=== PATIENT | male | born 1950 | race Caucasian/White ===

== ENCOUNTER 2018-03-02 10:31 | Outpatient (CLI) | payer BC | END 2018-03-02 10:32 | disposition home or self-care (01) | LOC: BICRAD 10:31 | PROVIDERS: ATTEND Urology | DX: N20.0 Calculus of kidney (principal) | CPT/HCPCS: 74018; 81001 ==

== ENCOUNTER 2018-03-08 11:28 | Outpatient (CLI) | payer BC ==
[2018-03-08 13:13] LABS: Hemoglobin 15.5 g/dL (14.0-18.0); Mean Corpuscular HGB CONC 34.3 g/dL (32.0-36.0); Mean Corpuscular Hemoglobin 31.5 pg (27.0-31.0); Mean Corpuscular Volume 91.8 fL (78.0-98.0); Mean Platelet Volume 6.6 fL (7.4-10.4); Platelet Count 337 thou/uL (130-400); RBC Distribution Width 13.6 % (11.5-14.5); Red Blood Cell (RBC) Count 4.93 mill/uL (4.70-6.10)
[2018-03-08 13:16] LABS: Bilirubin Negative (Negative); Blood, Urine Large (Negative); Clarity CLOUDY (Clear); Glucose, Urine (Dipstick) Negative (Negative); Leukocyte Moderate (Negative); Nitrite Negative (Negative); Protein, Urine (Dipstick) 100 mg/dL (Neg-Trace); Specific Gravity, Urine 1.023 (1.002-1.036); Urobilinogen 0.2 mg/dL (0.2-1.0)
[2018-03-08 13:18] LABS: Bacteria/HPF None Seen HPF (None Seen); Hyaline Casts/LPF 4-6 HYALINE CAST LPF (0-3 Hyaline); Pathc Cast-AUWi Flag 0.72 (0-2.49); RBC/HPF GREATER THAN 50-TNTC HPF (0-3); Squamous Epithelial 0-3 HPF (0-3)
[2018-03-08 13:24] LABS: INR-International Normal Ratio 0.9; Prothrombin Time 12.5 SEC (12.0-14.7)
[2018-03-08 13:27] LABS: PTT 22.8 SEC (22.9-36.1)
[2018-03-08 13:42] LABS: Anion Gap 11 mmol/L (10-20); BUN (Urea Nitrogen) 9 mg/dL (8.4-25.7); Calc. Creatinine Clearance 0 mL/min (70-130); Calcium 9.4 mg/dL (7.8-10.44); Carbon Dioxide 23 mmol/L (23-31); Chloride 108 mmol/L (98-107); Estimated GFR-MDRD 87; Glucose 96 mg/dL (80-115); Potassium 4.3 mmol/L (3.5-5.1); Sodium 138 mmol/L (136-145)
--- NOTE | 2018-03-11 15:01 | EKG ---
Test Reason : Blood Pressure : / mmHG Vent. Rate : 063 BPM Atrial Rate : 063 BPM P-R Int : 168 ms QRS Dur : 072 ms QT Int : 398 ms P-R-T Axes : 009 087 065 degrees QTc Int : 407 ms Normal sinus rhythm Normal ECG When compared with ECG of 22-JAN-2016 12:14, Nonspecific T wave abnormality no longer evident in Inferior leads QT has shortened Confirmed by DEBBIE BURGESS, JONATHON ([id number]) on 03/11/2018 3:00:39 PM Referred By: LINDA Confirmed By:JONATHON LEWIS MD
== END 2018-03-08 11:29 | disposition home or self-care (01) ==
LOC: LABBT 11:28
PROVIDERS: ATTEND Urology
DX: Z01.818 Encounter for other preprocedural examination (principal); N20.1 Calculus of ureter
CPT/HCPCS: 80048; 81001; 85027; 85610; 85730; 87086; 93005; 93010

== ENCOUNTER 2018-03-17 09:29 | Day surgery (SDC) | payer BC ==
[2018-03-08 11:51] VITALS: BMI 25.1
[2018-03-17] MEDS ORDERED: Levofloxacin 500 mg/D5W 100 ml Premix Bag ONE (11:09)
[2018-03-17] MEDS ORDERED: Fentanyl 100 MCG/2 ML VIAL ONE (14:53)
[2018-03-17] MEDS ORDERED: Iothalamate Meglumine 60% 50 ML VIAL FS ONE (15:32)
[2018-03-17] MEDS ORDERED: HYDROcodone/Acetaminophen 5/325 mg Tablet ONE (18:21)
--- NOTE | 2018-03-17 19:48 | OP ---
DATE OF PROCEDURE: 03/17/2018 SERVICE: Urology. SURGEON: Sanchez Donovan M.D. PREOPERATIVE DIAGNOSIS: Left renal stone. POSTOPERATIVE DIAGNOSIS: Left renal stone. PROCEDURE PERFORMED: Left ureteroscopy, laser lithotripsy and placement of a 6 x 28 double-J stent. INDICATIONS FOR PROCEDURE: Mr. Pizarro is a 67-year-old white male who presented to me with left flan k pain and intermittent hematuria. A CT demonstrated a large 1.6 cm left UPJ stone. I discussed shashank atment of the stone via ureteroscopy with risks and benefits and he has agreed to proceed forward. DESCRIPTION OF PROCEDURE: After identification of arm band and verification of consent, the patient was brought back to the operating room. He underwent general anesthesia with endotracheal intubation . He was then placed in dorsal lithotomy position, prepped and draped in the usual sterile fashion. After appropriate timeout, a lubricated 22-Prydeinig rigid cystoscope was introduced per urethra into t he bladder and attention turned to the left ureteral orifice. The ureteral orifice was cannulated wi th a 0.035 sensor wire up to the level of the renal pelvis. The cystoscope was then removed and a du al-lumen catheter advanced over the sensor wire up to the level of the proximal ureter. An Amplatz S uper Stiff wire was then placed through the dual lumen into the renal pelvis. The dual-lumen was the n removed. A sensor wire was affixed to the drape as a safety wire. An 11/13 x 46 cm ureteral acces s sheath was advanced over the Super Stiff wire up to the level of the UPJ. The inner cannula and th e Super Stiff wire were then removed leaving the outer sheath and the sensor wire in place as a safet y wire. A flexible digital ureteroscope was then used to cannulate through the ureteral access sheat h up to the level of the ureteropelvic junction. The stone was immediately apparent there, covered i n some blood clot with a lot of inflammation. Using a 200 micron laser fiber, the stone was fragment ed into small pieces. The stone was extremely soft stone, probably either calcium phosphate, calcium oxalate dihydrate or uric acid, although uric acid is the least favored given the radiodensity on pl ain x-ray. Given the softness of the stone, the stone was popcorned into extremely small pieces. Th e pieces were all in the 1-2 mm range. There became a significant amount of debris up in the kidney and it was not possible to identify larger stone pieces. We spent a lot of time lasering little bits into small pieces as possible as basketing would be extremely difficult given the sheer amount of st one burden and the difficulty identifying any larger stones. Upon completion, there was a large amou nt of stone material in the kidney, all in the very small dust granular sized range. Given the calib er of the ureter, I did feel that majority of the stone should pass, especially if his ureter is dila meg some with a stent, which we will keep in for approximately 1 week. Therefore, a pullback uretero scopy was employed and no additional stones were found in the ureter. The cystoscope was then backlo aded over the sensor wire back into the bladder. A 6 x 28 double-J stent was advanced over the senso r wire up to the level of the kidney. The wire was removed leaving a good curl in the kidney and a g ood curl in the bladder. The bladder was then emptied and the cystoscope removed. The patient was t hen awakened and taken to PACU for recovery in stable condition. COMPLICATIONS: None. ESTIMATED BLOOD LOSS: Minimal. RETAINED TUBES AND DRAINS: A 6 x 28 double-J stent on the left. SPECIMENS: None. FINDINGS: Normal bladder. Mildly obstructive prostate. No median lobe. Bladder neck appears relat ively open. Urethra was normal without strictures or lesions. Large radiodense stone in the left ki dney as described. The kidney was otherwise normal. FOLLOWUP: Follow up will be in 1 week for cystoscopy and stent removal.
== END 2018-03-17 18:50 | disposition home or self-care (01) ==
LOC: SDC 09:29
PROVIDERS: ATTEND Urology
PROC: 0TF48ZZ Fragmentation in Left Kidney Pelvis, Via Natural or Artificial Opening Endoscopic (ICD-10-PCS; principal; 2018-03-17)
PROC: 0T778DZ Dilation of Left Ureter with Intraluminal Device, Via Natural or Artificial Opening Endoscopic (ICD-10-PCS; principal; 2018-03-17)
DX: N20.0 Calculus of kidney (principal); E78.00 Pure hypercholesterolemia, unspecified; M81.0 Age-related osteoporosis without current pathological fracture; M85.80 Other specified disorders of bone density and structure, unspecified site; E21.3 Hyperparathyroidism, unspecified; Z79.83 Long term (current) use of bisphosphonates; Z79.899 Other long term (current) drug therapy; Z88.5 Allergy status to narcotic agent; Z88.8 Allergy status to other drugs, medicaments and biological substances; Z91.011 Allergy to milk products
CPT/HCPCS: 76001; C1769; J1956; J3010; Q9961

== ENCOUNTER 2018-06-01 15:05 | Outpatient (CLI) | payer BC ==
--- NOTE | 2018-06-01 17:02 | ULT ---
RENAL ULTRASOUND: 06/01/18 INDICATION: History of kidney stones. COMPARISON: Prior CT of the abdomen and pelvis dated 07/17/16. FINDINGS: No focal renal lesion or hydronephrosis is grossly evident. The right kidney measures 11.0 x 6.4 x 5. 1 cm. The left kidney measures 12.8 x 5.0 x 6.3 cm. The bladder volume was 58.3 mL. IMPRESSION: No focal renal lesion or hydronephrosis demonstrated. POS: YUNG
== END 2018-06-01 15:06 | disposition home or self-care (01) ==
LOC: BICULT 15:05
PROVIDERS: ATTEND Urology
DX: N20.0 Calculus of kidney (principal)
CPT/HCPCS: 76770

== ENCOUNTER 2019-08-11 08:15 | Outpatient (CLI) | payer BC ==
[2019-08-11 10:26] LABS: #Basophils 0.1 thou/uL (0.0-0.2); #Eosinphils 0.2 thou/uL (0.0-0.7); #Lymphocytes 1.8 thou/uL (1.20-3.40); #Monocytes 0.6 thou/uL (0.11-0.59); %Basophils 1.4 % (0.0-1.0); %Lymphocytes 22.7 % (21.0-51.0); %Monocytes 8.2 % (0.0-10.0); %Neutrophils 64.7 % (42.0-75.0); Hemoglobin 16.1 g/dL (14.0-18.0); Mean Corpuscular HGB CONC 33.5 g/dL (32.0-36.0); Mean Corpuscular Hemoglobin 31.4 pg (27.0-31.0); Mean Corpuscular Volume 93.6 fL (78.0-98.0); Mean Platelet Volume 6.8 fL (7.4-10.4); Platelet Count 337 thou/uL (130-400); RBC Distribution Width 14.2 % (11.5-14.5); Red Blood Cell (RBC) Count 5.13 mill/uL (4.70-6.10); White Blood Cell (WBC) Count 7.8 thou/uL (4.8-10.8)
[2019-08-11 10:45] LABS: Anion Gap 11 mmol/L (10-20); BUN (Urea Nitrogen) 10 mg/dL (8.4-25.7); Calc. Creatinine Clearance 0 mL/min (70-130); Carbon Dioxide 28 mmol/L (23-31); Chloride 107 mmol/L (98-107); Estimated GFR-MDRD 69; Glucose 110 mg/dL (80-115); Potassium 4.6 mmol/L (3.5-5.1); Sodium 141 mmol/L (136-145)
--- NOTE | 2019-08-14 18:56 | EKG ---
Test Reason : Blood Pressure : / mmHG Vent. Rate : 065 BPM Atrial Rate : 065 BPM P-R Int : 166 ms QRS Dur : 082 ms QT Int : 386 ms P-R-T Axes : -09 084 053 degrees QTc Int : 401 ms Normal sinus rhythm Normal ECG When compared with ECG of 08-MAR-2018 12:22, No significant change was found Confirmed by JACQUI BURGESS, SAdin ([id number]) on 08/14/2019 6:56:20 PM Referred By: MARTIN Confirmed By:DR. Rohan OSMAN MD
== END 2019-08-11 08:16 | disposition home or self-care (01) ==
LOC: LABBT 08:15
PROVIDERS: ATTEND Specialist
DX: Z01.818 Encounter for other preprocedural examination (principal); K40.90 Unilateral inguinal hernia, without obstruction or gangrene, not specified as recurrent
CPT/HCPCS: 80048; 85025; 93005; 93010

== ENCOUNTER 2019-08-18 11:26 | Day surgery (SDC) | payer BC ==
[2019-08-11 09:44] VITALS: BMI 25.1
[~2019-08-18 11:26] MED LIST: Dexamethasone 20 MG/5 ML VIAL ONE; Glycopyrrolate 0.2 MG/ML 5 ML SYRINGE ONE; Lidocaine 1% PF 5 ML VIAL ONE; Ondansetron PF 4 MG/2 ML Vial ONE; PHENYLEPHRINE-NS 100 MCG/ML 10 ML SYRINGE ONE; PROPOFOL 200 MG/20 ML VIAL ONE; Rocuronium Bromide 10 MG/ML (10ML VIAL) ONE; ePHEDrine/0.9% NaCl/PF SYRINGE 50 mg/10 ml ONE
[2019-08-18] MEDS ORDERED: Acetaminophen 500 MG TAB ONE (12:17)
[2019-08-18] MEDS ORDERED: Ketorolac Tromethamine 30 MG/ML VIAL ONE (12:17)
[2019-08-18] MEDS ORDERED: Bupivacaine 0.25% HCL 30 ML VIAL ONE (13:18)
[2019-08-18] MEDS ORDERED: Lidocaine 1% w/Epinephrine 1:100K 20 ML VIAL ONE (13:18)
[2019-08-18] MEDS ORDERED: Fentanyl 250 MCG/5 ML VIAL ONE (13:25)
--- NOTE | 2019-08-19 20:30 | OP ---
DATE OF PROCEDURE: 08/18/2019 PREOPERATIVE DIAGNOSIS: Right inguinal hernia. POSTOPERATIVE DIAGNOSES: Right inguinal hernia, indirect and large cord lipoma. PROCEDURES PERFORMED: Robotic right inguinal hernia repair with 3DMax mesh patch and resection of large cord lipoma. ANESTHESIA: General endotracheal. DESCRIPTION OF OPERATION: Informed consent was obtained. The patient was taken to the operating room where general endotracheal anesthesia was obtained with the patient in supine position. Puckett catheter was placed, and abdomen was prepped with ChloraPrep and draped in sterile fashion. Local anesthetic was infiltrated using a mixture of 1% lidocaine with epinephrine as well as 0.25% Marcaine. The incision was a few centimeter superior to the umbilicus. The site was selected as the patient had prior umbilical hernia repair. An 11-mm incision was created. A Veress needle was passed into the peritoneal cavity and pneumoperitoneum was established using carbon dioxide up to pressure of 15 mmHg. An 11-mm balloon-tipped trocar port was placed. Camera was passed through this port and under direct vision, two additional 8-mm robotic ports were placed on either side of midline at the supraumbilical level. The omental adhesions to the umbilical mesh patch were taken down using sharp dissection electrocautery. Inferiorly, I was able to identify the hernia plug at the left inguinal hernia repair site. This is intact, and there was no evidence of recurrent hernia. On the right side, there was an obvious fairly large indirect inguinal hernia. The robot was docked to the ports and the camera, and the operation was continued from the robotic console. There were unusual folds and indentation within the peritoneum and muscular abdominal wall in the lower right side. On the superior aspect of one of these folds, a transverse incision was created in the peritoneum extending medially to the median umbilical ligament. Preperitoneal dissection was carried inferiorly. The pubic tubercle was identified medially. The iliopubic tract was cleared laterally. In the central portion, the hernia sac was carefully dissected off the underlying cord structures. There was a large cord lipoma affiliated with the cord, and this was also completely mobilized back to the peritoneal and preperitoneal insertion. When the area had been fully developed, a large 3DMax mesh patch was obtained and placed within the preperitoneal space. It was secured in place with 3 interrupted sutures of 2-0 Vicryl. The peritoneum was then closed with a running suture of 3-0 Stratafix. The mesh was nicely peritonealized. The fascial defect at the 11-mm port site was closed with 0 Vicryl suture using a GraNee needle. All ports and instruments were removed under direct vision. Pneumoperitoneum was carefully evacuated. The local anesthetic was infiltrated at each port site. Skin edges were approximated with 4-0 Monocryl subcuticular suture and Dermabond. There were no complications. Blood loss was negligible. The patient tolerated the procedure well and was taken to recovery room in stable condition. Job ID: [id number]
== END 2019-08-18 17:12 | disposition home or self-care (01) ==
LOC: SDC 11:26
PROVIDERS: ATTEND Specialist
PROC: 0YU54JZ Supplement Right Inguinal Region with Synthetic Substitute, Percutaneous Endoscopic Approach (ICD-10-PCS; principal; 2019-08-18)
DX: K40.90 Unilateral inguinal hernia, without obstruction or gangrene, not specified as recurrent (principal); D17.6 Benign lipomatous neoplasm of spermatic cord; E78.00 Pure hypercholesterolemia, unspecified; M81.0 Age-related osteoporosis without current pathological fracture; M85.80 Other specified disorders of bone density and structure, unspecified site; E53.8 Deficiency of other specified B group vitamins; Z79.83 Long term (current) use of bisphosphonates; Z79.899 Other long term (current) drug therapy; Z88.5 Allergy status to narcotic agent; Z91.011 Allergy to milk products; Z91.040 Latex allergy status
CPT/HCPCS: C1781; J0690; J1100; J1885; J2001; J2405; J2704; J3010; S0020

== ENCOUNTER 2022-03-05 11:03 | Outpatient (CLI) | payer BC | END 2022-03-05 11:04 | disposition home or self-care (01) | LOC: BICCT 11:03 | PROVIDERS: ATTEND Urology | DX: N20.2 Calculus of kidney with calculus of ureter (principal); N28.1 Cyst of kidney, acquired; K57.30 Diverticulosis of large intestine without perforation or abscess without bleeding | CPT/HCPCS: 74176 ==

== ENCOUNTER 2023-02-10 10:44 | Outpatient (CLI) | payer BC | END 2023-02-10 10:45 | disposition home or self-care (01) | LOC: BICMAMMO 10:44 | PROVIDERS: ATTEND Family Medicine | DX: M81.0 Age-related osteoporosis without current pathological fracture (principal); M85.88 Other specified disorders of bone density and structure, other site | CPT/HCPCS: 77080 ==